=== PATIENT | female | born 1955 | race Caucasian/White ===

== ENCOUNTER 2017-07-30 05:27 | Day surgery (SDC) | payer BC ==
[2017-07-30] MEDS ORDERED: fentaNYL 100 MCG/2 ML SDV IV ONE ×3 (05:28→06:37)
[2017-07-30] MEDS ORDERED: Midazolam 1 MG/ML 2 ML SDV IV ONE ×4 (05:28→06:42)
[2017-07-30] MEDS ORDERED: Sodium Chloride 0.9% 10 ML Syringe FLUSH PRN (06:00)
[2017-07-30] MEDS ORDERED: Dextrose 5%-0.45% NaCl 1,000 ML IV SCH (06:00)
[2017-07-30] MEDS ORDERED: Midazolam 1 MG/ML 2 ML SDV ONE (06:23)
[2017-07-30] MEDS ORDERED: fentaNYL 100 MCG/2 ML SDV ONE (06:24)
[2017-07-30 08:36] VITALS: BP 140/79
--- NOTE | 2017-07-30 09:04 | OR ---
DATE: 07/30/2017 PROCEDURE: Total colonoscopy. INSTRUMENT USED: PCF-H180AL Olympus video colonoscope. PREMEDICATIONS: Fentanyl 100 mcg intravenous, Versed 3 mg intravenous. Nasal O2 cannula. The procedure was done under pulse oximetry, BP recording, and site monitor. INDICATION: The patient with rectal bleeding. Colonoscopic examination is done for detection of any polypoid lesions and removal, endoscopic hemostasis therapy if needed. DESCRIPTION OF PROCEDURE: Initial rectal exam showed external hemorrhoidal tags. Rigid anoscopy was normal. The colonoscope was passed with ease. Few scattered diverticula were noted along with deformity in the distal left colon. The scope was passed with ease up to the ileocecal area, photographs were taken of the normal-appearing cecum, identified by double-bulged ileocecal folds. No bleeding was noted from any of the visualized areas at the commencement of the examination. No stricture. No vascular ectasia. No large isolated ulcerations seen. No evidence of diffuse inflammatory bowel disease in the form of friability, contact bleeding, or ulcerations. No polyp or tumor mass identified. Probing the proximal sides of folds and flexures, using adequate distention, and clearing of the stool material, withdrawal of the scope was made. Cecum to rectum time over 6 minutes. No bleeding was noted from any of the visualized areas at the completion of examination. IMPRESSION: 1. External hemorrhoids. 2. Diverticulosis. The patient tolerated the procedure well. [facility] /[id number]
== END 2017-07-30 08:46 | disposition home or self-care (01) ==
LOC: DL.ENDO 05:27
PROVIDERS: ATTEND Internal Medicine Gastroenterology
DX: K57.30 Diverticulosis of large intestine without perforation or abscess without bleeding (principal); K64.4 Residual hemorrhoidal skin tags; K31.89 Other diseases of stomach and duodenum; I10 Essential (primary) hypertension; E03.9 Hypothyroidism, unspecified; E78.5 Hyperlipidemia, unspecified; G47.33 Obstructive sleep apnea (adult) (pediatric)
CPT/HCPCS: 45378; J2250; J3010; J7042

== ENCOUNTER → 2019-07-20 | Day surgery (SDC) | payer BC ==
[~2019-07-20] MED LIST: Bupivacaine 0.5% 30 ML SDV INJECT ONE; Bupivacaine 0.5% 30 ML SDV ONE; Dexamethasone 4 MG/ML SDV IV ONE; Lactated Ringers 1,000 ML IV SCH; Lidocaine 1% 30 ML SDV INJECT ONE; Lidocaine 1% 30 ML SDV ONE; Midazolam 1 MG/ML 2 ML SDV IV ONE; Ondansetron 4 MG/2 ML SDV IV ONE; Propofol 200 MG/20 ML SDV IV ONE; Sodium Chloride 0.9% 10 ML Syringe FLUSH PRN; ceFAZolin 2 GM in Premix Bag 1 BAG IV ONE; fentaNYL 100 MCG/2 ML SDV IV ONE; oxyCODONE 5 MG Tab PO PRN
--- NOTE | 2019-07-20 10:22 | PCM.OPNOTE ---
- General Post-Op/Procedure Note Date of Surgery/Procedure: 07/20/19 Operative Procedure(s): left foot 1st metatarsal osteotomy/bunionectomy Pre Op Diagnosis: left foot painful bunion Post-Op Diagnosis: palomo Anesthesia Technique: Local, MAC Primary Surgeon: Taylor Martinez Anesthesia Provider: Esau Coburn EBL in mLs: 5 Complications: none Condition: Good Free Text/Narrative:: Pt tolerated procedure well and was transported to recovery with vascular status intact to [facility]. 3.0 lion cannulated screws placed at osteotomy site.
[2019-07-20 11:53] VITALS: BP 138/97; PULSE 79
--- NOTE | 2019-07-21 13:04 | OR ---
DATE: 07/20/2019 PREOPERATIVE DIAGNOSIS: Left foot painful bunion deformity. POSTOPERATIVE DIAGNOSIS: Left foot painful bunion deformity. PROCEDURE PERFORMED: Left foot 1st metatarsal osteotomy/bunionectomy with hardware fixation. ANESTHESIA: Local MAC with preoperative local block of 10 mL of 1:1 mixture of 1% lidocaine plain and 0.5% Marcaine plain. TOURNIQUET TIME: 88 minutes pneumatic ankle tourniquet. ESTIMATED BLOOD LOSS: Minimal. SPECIMENS: None. COMPLICATIONS: None. INDICATIONS: Miracle is a 64-year-old female, who presents with a painful bunion on her left foot. This has been bothering her for few years now and gradually worsening. She has failed conservative options including wider shoes and bunion padding. X-rays reveal deviated 1st metatarsal with intermetatarsal angle of approximately 14 degrees. The patient voiced good understanding of the proposed procedure and possible complications and elects to have surgery at this time. DESCRIPTION OF PROCEDURE: The patient was taken to the operating room lying in a supine position. After adequate anesthesia induction as described above, the left foot was prepped and draped in the usual sterile fashion. A pneumatic ankle tourniquet was inflated to 225 mmHg. Attention was then directed to the left foot dorsal 1st metatarsophalangeal joint area where an approximately 6 cm linear incision was made overlying the bunion. Sharp and blunt dissection was performed to the level of the joint capsule with care to gently retract all neurovascular bundles. An inverted-L capsulotomy was made, and the capsule was reflected to expose the distal 1st metatarsal. A hypertrophic medial eminence was noted at this time and it was resected with sagittal saw. Blunt dissection was performed in the 1st interspace to the level of the fibular sesamoid, and the adductor hallucis tendon was transected from its attachment performing a lateral release. The joint was inspected, and there was noted to be just a small defect at the plantar aspect of the 1st metatarsal head near the sesamoid groove. This was drilled with a 0.062 inch K-wire. Sagittal saw was then used to make a chevron-type osteotomy angulating in a fashion that would allow maintenance of the length with lateral transposition of the capital fragment. She already had a short 1st metatarsal, so I tried to make sure that the metatarsal was not shortened during the procedure. The capital fragment was then transposed laterally approximately 6 mm impacted to bring the hallux in a near-rectus alignment. K-wires from the 3.0 Hali screw set were used as temporary fixation. Fluoroscopy was used to verify adequate reduction of the deformity and proper screw fixation. Two partially-threaded cannulated 3.0 [place] screws were then inserted at the osteotomy site of the 1st metatarsal. Temporary fixation was removed. The osteotomy site was noted to be stable with axial, valgus, and varus force applied with fluid range of motion of the 1st MTPJ. The area was then flushed with copious amounts of sterile saline. Medial capsulorrhaphy was performed. Capsular closure was completed with 3-0 Vicryl and skin closure was completed with 4-0 nylon. The hallux was noted to be in a near-rectus alignment at this time. The surgical site was dressed with Xeroform to the incision site, fluffs, Webril, and an Sarath wrap. The patient tolerated the procedure and anesthesia well and left the operating room for recovery with vital signs stable and in good condition with vascular status intact to the left foot as noted by immediate hyperemia upon deflation of the ankle tourniquet. The patient was then discharged home when she met hospital discharge requirements. [facility] /[id number]
== END ==
LOC: DL.SDS 06:54
PROVIDERS: ATTEND Podiatrist
DX: M21.612 Bunion of left foot (principal); E78.5 Hyperlipidemia, unspecified; K21.9 Gastro-esophageal reflux disease without esophagitis; I10 Essential (primary) hypertension; E03.9 Hypothyroidism, unspecified; Z87.891 Personal history of nicotine dependence; Z88.8 Allergy status to other drugs, medicaments and biological substances; Z88.5 Allergy status to narcotic agent
CPT/HCPCS: C1713; J0690; J1100; J2001; J2250; J2405; J2704; J3010; J3490; J7120